=== PATIENT | male | born 1945 | race African-American/Black ===

== ENCOUNTER 2018-01-02 05:52 | Day surgery (SDC) | payer MEDICARE ==
[~2018-01-02] VITALS: Ht 190.5 cm; Wt 111.1 kg
[2018-01-02] VITALS (7 sets, daily range): BP systolic 144–169; BP diastolic 73–82
[~2018-01-02 05:52] MED LIST: AMLODIPINE10 MG PO; AUGMENTIN500TAB PO; AVELOX400 MG PO; CETIRIZ/PSE1 TAB PO; CIPRO500 MG OR; CLONIDINE0.2 MG OR; COREG25 MG OR; COREG25 MG PO; DOXAZOSIN1 MG PO; ENALAPRIL MALEA20 MG PO; ENALAPRIL2.5 MG PO; ENALAPRIL20 MG OR; FLOMAX0.4 M1 PO; FLOMAX0.4 MG OR; FLONASE NASAL50 MCG; FLUARIX QUADRIV1 IN1 IM; FLUARIX QUADRIV1 IN2 IM; FLUTICASONE50 MCG; GLIPIZIDE5 MG PO; HYDRALAZINE10 M1 PO; HYDRALAZINE50 MG OR; HYDRALAZINE50 MG PO; HYDROCHLOROT25 MG OR; HYDROCO/APAP1 T11 PO; KLOR-CON 1010 ME1 PO; LASIX 20 MG TAB20 MG PO; LASIX40 MG PO; LORTAB 5 OR; LORTAB 7.5-3251 TAB PO; METFORMIN500 MG; METFORMIN500 MG PO; NEURONTIN300 MG PO; OMEPRAZOLE20 MG PO; POOR HISTORIAN; PREVACID30 M1 OR; PREVACID30 M2 PO; PROBENECID500 MG PO; PROCTOSOL HC2.5 % RE; RANITIDINE150 MG PO; RAPAFLO4 MG PO; SIMVASTATIN80 MG PO; TIZANIDINE HCL4 M1 PO; ULTRAM50 M1 PO; VIAGRA100 MG PO; ZITHROMAX500 MG PO
[2018-01-02] MEDS ORDERED: BACTRIM DS1 TAB PO ×2 (09:07→10:46)
[2018-01-02] MEDS ORDERED: NORCO1 TA2 PO ×2 (09:07→10:46)
[2018-01-02] MEDS ORDERED: DOCUSATE CAL240 MG PO (10:46)
== END 2018-01-02 16:20 | disposition home health service (06) ==
LOC: ORM 05:52
PROVIDERS: ATTEND Urology
PROC: 0VUS0JZ Supplement Penis with Synthetic Substitute, Open Approach (ICD-10-PCS; principal; 2018-01-02)
DX: N52.9 Male erectile dysfunction, unspecified (principal); E11.9 Type 2 diabetes mellitus without complications; I10 Essential (primary) hypertension; E66.9 Obesity, unspecified; I25.10 Atherosclerotic heart disease of native coronary artery without angina pectoris; L30.9 Dermatitis, unspecified; K21.9 Gastro-esophageal reflux disease without esophagitis; M19.90 Unspecified osteoarthritis, unspecified site; N40.1 Benign prostatic hyperplasia with lower urinary tract symptoms; R35.1 Nocturia; R39.12 Poor urinary stream; Z87.11 Personal history of peptic ulcer disease; Z95.5 Presence of coronary angioplasty implant and graft
CPT/HCPCS: J2710; J3370

== ENCOUNTER → 2018-04-24 | Day surgery (SDC) | payer MEDICARE ==
[~2018-04-24] MED LIST changes: +BACTRIM DS1 TAB PO; +DOCUSATE CAL240 MG PO; +NORCO1 TA2 PO
[2018-04-24 11:38] VITALS: BP 151/73
== END ==
LOC: ORM 07:00
PROVIDERS: ATTEND Urology
DX: N40.0 Benign prostatic hyperplasia without lower urinary tract symptoms (principal); Z53.20 Procedure and treatment not carried out because of patient's decision for unspecified reasons

== ENCOUNTER → 2018-10-30 | Outpatient (REF) | payer MEDICARE ==
[2018-10-30 07:53] LABS: HEMATOCRIT 46.8 % (39.0-50.0); HEMOGLOBIN 14.6 g/dl (14.0-18.0); IMMATURE GRANULOCYTES 0.4 % (0.0-5.0); MEAN CELL VOLUME 87.5 fL CALC (80.0-100.0); MEAN CORPUSCULAR HGB 27.3 pG CALC (26.0-32.0); MEAN CORPUSCULAR HGB CONC 31.2 g/L CALC (32.0-36.0); NEUT# 2.85 thou/uL (1.82-7.42); RED BLOOD COUNT 5.35 mill/uL (4.70-6.10); RED CELL DISTRI WIDTH 13.6 % (11.5-15.5)
[2018-10-30 08:22] LABS: ALKALINE PHOSPHATASE 89 u/l (38-126); ANION GAP 13 (6-22 (CALC)); BILIRUBIN, TOTAL 0.5 mg/dL (0.0-1.4); BUN 17 mg/dL (8-23); BUN/CREATININE RATIO 15 (12-20 (CALC)); CALCULATED LDLCHOLESTEROL 39 mg/dL (62-129 (CALC)); CARBON DIOXIDE 27 mmol/l (22-30); CHLORIDE 106 mmol/l (95-108); CHOLESTEROL HDL RATIO 2.1 (<4.4 (CALC)); CREATININE 1.2 mg/dL (0.7-1.3); GFR 59 ML/MIN (>=60 (CALC)); GFR FOR AFR.AMER. > 60 ML/MIN (>=60 (CALC)); HDL CHOLESTEROL 45 mg/dL (>=40); SGOT/AST 31 u/l (19-48); SODIUM 142 mmol/l (137-146); TOTAL CHOLESTEROL 92 mg/dl (0-199); TOTAL PROTEIN 6.6 g/dL (6.3-8.2); TRIGLYCERIDES REFLEX TO dLDL 45 mg/dl (30-149); VLDL CHOLESTROL 9 mg/dl (0-38 (CALC))
== END | disposition home or self-care (01) ==
LOC: LAB 06:52
PROVIDERS: ATTEND Internal Medicine Geriatric Medicine
DX: I10 Essential (primary) hypertension (principal); E11.9 Type 2 diabetes mellitus without complications

== ENCOUNTER 2022-07-23 11:35 | Inpatient (IN) | payer MEDICARE ==
[2022-07-23] VITALS (28 sets, daily range): BP systolic 133–187; BP diastolic 58–161
[~2022-07-23] VITALS: Ht 190.5 cm; Wt 108.0 kg
[2022-07-23] MEDS ORDERED: ATORVASTATIN CA80 MG PO (12:13)
[2022-07-23] MEDS ORDERED: PLAVIX75 MG PO (12:14)
[2022-07-23] MEDS ORDERED: PROBENECID/COLC1 TAB PO (12:15)
[2022-07-23] MEDS ORDERED: OMEPRAZOLE20 MG PO (12:15)
[2022-07-23] MEDS ORDERED: TAMSULOSIN HCL0.4 MG PO (12:17)
[2022-07-23] MEDS ORDERED: OXYBUTYNIN CHLOR5 M2 (12:17)
[2022-07-23 12:37] LABS: HEMATOCRIT 45.6 % (39.0-50.0); HEMOGLOBIN 14.3 g/dl (14.0-18.0); IMMATURE GRANULOCYTES 0.2 % (0.0-5.0); MEAN CELL VOLUME 91.6 fL CALC (80.0-100.0); MEAN CORPUSCULAR HGB 28.7 pG CALC (26.0-32.0); MEAN CORPUSCULAR HGB CONC 31.4 g/dL CAL (32.0-36.0); NEUT# 3.76 thou/uL (1.82-7.42); RED BLOOD COUNT 4.98 mill/uL (4.70-6.10); RED CELL DISTRI WIDTH 14.2 % (11.5-15.5)
[2022-07-23 12:51] LABS: ALBUMIN 3.7 g/dL (3.2-5.0); ALKALINE PHOSPHATASE 99 u/l (38-126); BUN 13 mg/dL (8-23); BUN/CREATININE RATIO 14 (12-20 (CALC)); CARBON DIOXIDE 26 mmol/l (22-30); CHLORIDE 112 mmol/l (95-108); GFR FOR AFR.AMER. > 60 ML/MIN (>=60 (CALC)); GFR OTHER RACES > 60 ML/MIN (>=60 (CALC)); SGOT/AST 27 u/l (19-48); SODIUM 144 mmol/l (137-146); TOTAL PROTEIN 6.6 g/dL (6.3-8.2)
[2022-07-23 12:57] LABS: ANION GAP 10 (6-22 (CALC)); BILIRUBIN, TOTAL 0.6 mg/dL (0.0-1.4); POTASSIUM 3.7 mmol/l (3.5-5.1)
[2022-07-24 04:22] VITALS: BP 150/77
[2022-07-24 06:30] VITALS: BP 113/78
[2022-07-24 06:43] VITALS: BP 135/76
[2022-07-24 06:44] LABS: HEMATOCRIT 42.6 % (39.0-50.0); HEMOGLOBIN 13.9 g/dl (14.0-18.0); MEAN CELL VOLUME 89.3 fL CALC (80.0-100.0); MEAN CORPUSCULAR HGB 29.1 pG CALC (26.0-32.0); MEAN CORPUSCULAR HGB CONC 32.6 g/dL CAL (32.0-36.0); RED BLOOD COUNT 4.77 mill/uL (4.70-6.10)
[2022-07-24 06:55] LABS: ANION GAP 10 (6-22 (CALC)); BUN 12 mg/dL (8-23); BUN/CREATININE RATIO 13 (12-20 (CALC)); CHLORIDE 108 mmol/l (95-108); GFR FOR AFR.AMER. > 60 ML/MIN (>=60 (CALC)); GFR OTHER RACES > 60 ML/MIN (>=60 (CALC)); MAGNESIUM 1.7 mg/dL (1.6-2.3); POTASSIUM 3.6 mmol/l (3.5-5.1); SODIUM 146 mmol/l (137-146)
[2022-07-24 07:21] LABS: CARBON DIOXIDE 32 mmol/l (22-30)
[2022-07-24 13:25] VITALS: BP 144/67
[2022-07-24 19:18] VITALS: BP 133/68
[2022-07-24 23:54] VITALS: BP 141/75
[2022-07-25 04:19] VITALS: BP 149/77
[2022-07-25 05:37] LABS: HEMATOCRIT 42.9 % (39.0-50.0); HEMOGLOBIN 13.9 g/dl (14.0-18.0); MEAN CELL VOLUME 90.3 fL CALC (80.0-100.0); MEAN CORPUSCULAR HGB 29.3 pG CALC (26.0-32.0); MEAN CORPUSCULAR HGB CONC 32.4 g/dL CAL (32.0-36.0); RED BLOOD COUNT 4.75 mill/uL (4.70-6.10); RED CELL DISTRI WIDTH 13.8 % (11.5-15.5)
[2022-07-25 06:07] LABS: ANION GAP 7 (6-22 (CALC)); BUN 13 mg/dL (8-23); BUN/CREATININE RATIO 13 (12-20 (CALC)); CARBON DIOXIDE 32 mmol/l (22-30); CHLORIDE 107 mmol/l (95-108); GFR FOR AFR.AMER. > 60 ML/MIN (>=60 (CALC)); GFR OTHER RACES > 60 ML/MIN (>=60 (CALC)); MAGNESIUM 1.7 mg/dL (1.6-2.3); POTASSIUM 3.2 mmol/l (3.5-5.1); SODIUM 143 mmol/l (137-146)
[2022-07-25 07:39] VITALS: BP 149/79
[2022-07-25 09:00] VITALS: BP 143/75
[2022-07-25] MEDS ORDERED: AMLODIPINE BESY10 MG PO (12:45)
[2022-07-25] MEDS ORDERED: LASIX 20 MG TAB20 MG PO (12:46)
[2022-07-25] MEDS ORDERED: VIBRAMYCIN100 M2 PO (12:46)
[2022-07-25] MEDS ORDERED: K-TABS10 MEQ PO (12:47)
== END 2022-07-25 15:11 | DRG 193 ==
LOC: ED 11:35 → ED-I 15:33 → ED 18:05 → MS2 18:06
PROVIDERS: Family Medicine; ADMIT Internal Medicine; ATTEND Internal Medicine
PROC: 05HM33Z Insertion of Infusion Device into Right Internal Jugular Vein, Percutaneous Approach (ICD-10-PCS; principal; 2022-07-23)
DX: J18.9 Pneumonia, unspecified organism (principal); I50.23 Acute on chronic systolic (congestive) heart failure; J96.01 Acute respiratory failure with hypoxia; J44.0 Chronic obstructive pulmonary disease with (acute) lower respiratory infection; I11.0 Hypertensive heart disease with heart failure; E11.51 Type 2 diabetes mellitus with diabetic peripheral angiopathy without gangrene; I25.5 Ischemic cardiomyopathy; I25.10 Atherosclerotic heart disease of native coronary artery without angina pectoris; M10.9 Gout, unspecified; K21.9 Gastro-esophageal reflux disease without esophagitis; Z95.5 Presence of coronary angioplasty implant and graft; Z95.820 Peripheral vascular angioplasty status with implants and grafts; Z79.84 Long term (current) use of oral hypoglycemic drugs; Z87.891 Personal history of nicotine dependence; Z20.822 Contact with and (suspected) exposure to COVID-19
CPT/HCPCS: J1650

== ENCOUNTER 2022-10-04 09:52 | Inpatient (IN) | payer MEDICARE ==
[~2022-10-04] VITALS: Ht 190.5 cm; Wt 107.2 kg
[2022-10-04] VITALS (15 sets, daily range): BP systolic 143–224; BP diastolic 68–195
[~2022-10-04 09:52] MED LIST changes: +AMLODIPINE BESY10 MG PO; +ATORVASTATIN CA80 MG PO; +K-TABS10 MEQ PO; +OXYBUTYNIN CHLOR5 M2; +PLAVIX75 MG PO; +PROBENECID/COLC1 TAB PO; +TAMSULOSIN HCL0.4 MG PO; +VIBRAMYCIN100 M2 PO
--- NOTE | 2022-10-04 09:55 | NUR ---
PT TO ROOO VIA WC ABLE TO STAND AND TRANSFER SELF TO STRETCHER.
--- NOTE | 2022-10-04 10:30 | NUR ---
Reassessment of patient completed. No distress noted.
[2022-10-04 10:32] LABS: BASO% 0.7 % (0-3); EOS% 1.1 % (0-8); HEMATOCRIT 46.1 % (39.0-50.0); HEMOGLOBIN 14.1 g/dl (14.0-18.0); LYMPH% 23.5 % (15-41); MEAN CELL VOLUME 90.9 fL CALC (80.0-100.0); MEAN CORPUSCULAR HGB 27.8 pG CALC (26.0-32.0); MEAN CORPUSCULAR HGB CONC 30.6 g/dL CAL (32.0-36.0); MONO% 11.1 % (2-13); NEUT# 2.87 thou/uL (1.82-7.42); NEUT% 63.6 % (42-76); RED BLOOD COUNT 5.07 mill/uL (4.70-6.10)
[2022-10-04 10:40] LABS: URINE BILIRUBIN - DIPSTICK NEGATIVE (NEGATIVE); URINE BLOOD DIPSTICK NEGATIVE (NEGATIVE); URINE COLOR YELLOW; URINE GLUCOSE - DIPSTICK NEGATIVE (NEGATIVE); URINE KETONE NEGATIVE (NEGATIVE); URINE LEUK ESTERASE NEGATIVE (NEGATIVE); URINE PH 5.5 (4.5-8.0); URINE PROTEIN - DIPSTICK NEGATIVE (NEG-TRACE); URINE UROBILINOGEN - DIPSTICK 0.2 E.U./dL (0.2)
[2022-10-04 10:44] LABS: URINE NITRITE - DIPSTICK NEGATIVE (Negative)
[2022-10-04 10:55] LABS: INTERNATIONAL NORMALIZED RATIO 1.2 RATIO (0.7-1.3); PROTHROMBIN TIME 11.4 SECONDS (9.0-12.5)
[2022-10-04 11:02] LABS: ALBUMIN 3.8 g/dL (3.2-5.0); ALKALINE PHOSPHATASE 90 u/l (38-126); BILIRUBIN, TOTAL 0.7 mg/dL (0.2-1.3); BUN 11 mg/dL (8-23); BUN/CREATININE RATIO 9 (12-20 (CALC)); CARBON DIOXIDE 26 mmol/l (22-30); CHLORIDE 112 mmol/l (95-108); CREATININE 1.1 mg/dL (0.7-1.3); GFR FOR AFR.AMER. > 60 ML/MIN (>=60 (CALC)); GFR OTHER RACES > 60 ML/MIN (>=60 (CALC)); SGOT/AST 33 u/l (19-48); SODIUM 142 mmol/l (137-146); TOTAL PROTEIN 6.2 g/dL (6.3-8.2)
[2022-10-04 11:18] LABS: ANION GAP 8 (6-22 (CALC)); POTASSIUM 4.2 mmol/l (3.5-5.1)
--- NOTE | 2022-10-04 11:30 | NUR ---
Reassessment of patient completed. No distress noted.
--- NOTE | 2022-10-04 12:29 | NUR ---
Reassessment of patient completed. No distress noted.
--- NOTE | 2022-10-04 13:01 | NUR ---
Reassessment of patient completed. No distress noted.
--- NOTE | 2022-10-04 13:45 | NUR ---
SIX MINUTE WALK TEST ADMINISTERED. O2 SATURATION ON RA SITTIN% 02 SATURATION ON RA STANDING 80%. PT ASSISTED BACK TO BED, SUPPLMENTAL O2 REAPPLIED AT 4L, RN AT BEDSIDE FOR SATURATION TO RETURN WDL. PT TOLERATED WELL THROUGHOUT WITH NO COMPLAINTS OF ACUTE DISTRESS NOTED OR OBSERVED. MD NOTIFIED OF RESULTS.
--- NOTE | 2022-10-04 14:45 | NUR ---
Reassessment of patient completed. No distress noted.
--- NOTE | 2022-10-04 15:07 | NUR ---
375 OUTPUT BY URINAL; YELLOW CLEAR URINE NOTED
--- NOTE | 2022-10-04 16:32 | NUR ---
Reassessment of patient completed. No distress noted.
--- NOTE | 2022-10-04 17:26 | NUR ---
URINALS X2 EMPTIED. 890 CC EMPTIED OF CLEAR YELLOW URINE.
[2022-10-04] MEDS ORDERED: SLOW-MAG PO (17:51)
[2022-10-04] MEDS ORDERED: GABAPENTIN100 MG PO (17:51)
[2022-10-04] MEDS ORDERED: PROBENECID/COLC1 TAB PO (17:53)
[2022-10-04] MEDS ORDERED: LASIX 20 MG TAB20 MG PO (17:54)
--- NOTE | 2022-10-04 18:06 | NUR ---
PT ARRIVED TO ROOM 261 VIA WHEELCHAIR. PT A&OX4. NO APPARENT DISTRESS NOTED. 02 @ 4L/M VIA NC, SAT 94%. MANAGER FITNESS IN PLACE. PT ORIENTED TO ROOM AND CALL LIGHT SYSTEM. WILL CONTINUE TO MONITOR.
--- NOTE | 2022-10-04 18:18 | NUR ---
Admission Note Report Given to: ISABELLE CISSE Transported by: X Wheelchair Stretcher Transported with: X Nurse Transporter Patent IV X O2 X Farm Loan Inspector Location: ICU X [facility]
--- NOTE | 2022-10-04 19:57 | NUR ---
RECEIVED REPORT FROM ISABELLE CROW. PT RESTING ON BED WATCHING TV; A&O X3. EVEN AND UNLABORED RESPIRATIONS; DIMINISHED LUNG SOUNDS THROUGHTOUT. O2 @4L VIA NASAL CANNULA IN PLACE. TELEMETRY IN PLACE. ACTIVE BOWEL SOUNDS X4 QUADRANTS. IV SITE HEALTHY AND PATENT. EDEMA +2 NOTED TO KADY FEET. SAFETY PRECAUTIONS IN PLACE WITH CALL LIGHT IN REACH.
--- NOTE | 2022-10-04 23:59 | NUR ---
PT RESTING ON BED WITH EYES CLOSED, SUPINE POSITION. NO DISTRESS OR PAIN NOTED. O2 @ 4L VIA NASAL CANNULA IN PLACE. NO VOICED NEEDS AT THIS TIME.SAFETY PRECAUTIONS IN PLACE WITH CALL LIGHT IN REACH.
[2022-10-05] VITALS (7 sets, daily range): BP systolic 144–160; BP diastolic 64–82
--- NOTE | 2022-10-05 03:43 | NUR ---
PT RESTING ON BED WITH EYES CLOSED, SUPINE POSITION. NO DITRESS OR PAIN NOTED. O2 @ 4L VIA NASAL CANNULA IN PLACE. NO VOICED NEEDS AT THIS TIME. SAFETY PRECAUTIONS IN PLACE WITH CALL LIGHT IN REACH.
[2022-10-05 05:32] LABS: BASO% 0.4 % (0-3); EOS% 1.5 % (0-8); HEMATOCRIT 44.8 % (39.0-50.0); HEMOGLOBIN 13.9 g/dl (14.0-18.0); LYMPH% 21.6 % (15-41); MEAN CELL VOLUME 91.1 fL CALC (80.0-100.0); MEAN CORPUSCULAR HGB 28.3 pG CALC (26.0-32.0); MONO% 14.5 % (2-13); NEUT# 2.81 thou/uL (1.82-7.42); RED BLOOD COUNT 4.92 mill/uL (4.70-6.10)
[2022-10-05 05:45] LABS: ALBUMIN 3.4 g/dL (3.2-5.0); ALKALINE PHOSPHATASE 87 u/l (38-126); ANION GAP 8 (6-22 (CALC)); BILIRUBIN, TOTAL 0.8 mg/dL (0.2-1.3); BUN 9 mg/dL (8-23); BUN/CREATININE RATIO 10 (12-20 (CALC)); CARBON DIOXIDE 27 mmol/l (22-30); CHLORIDE 111 mmol/l (95-108); GFR FOR AFR.AMER. > 60 ML/MIN (>=60 (CALC)); GFR OTHER RACES > 60 ML/MIN (>=60 (CALC)); MAGNESIUM 1.5 mg/dL (1.6-2.3); POTASSIUM 3.7 mmol/l (3.5-5.1); SGOT/AST 26 u/l (19-48); SODIUM 142 mmol/l (137-146); TOTAL PROTEIN 5.9 g/dL (6.3-8.2)
--- NOTE | 2022-10-05 10:00 | NUR ---
REPLACED MAG AND POTASSIUM. PATIENT STATED FEELING "OKAY' NO PAIN. PATIENT INFORMED TO USE CALL LIGHT FOR ASSISTANCE. WILL CONTINUE TO MONITOR.
--- NOTE | 2022-10-05 20:17 | NUR ---
RECEIVED REPORT FROM NURSE OLIVER. PATIENT RESTING IN BED, HOOKED ON O2 @ 4LPM VIA NC, SPO2 @ 85% PATEINT TALKING ON THE PHONE, RAISE O2 @ 5LPM MAINATINED SPO2 @ 90%, SALINE LOCK ON LAC PATENT AND FLUSHES WELL, HOOKED ON TELEMETRY, ACTIVE BOWEL SOUNDS LBM 10/04, USES URINAL TO VOID 400CC CLEAR YELLOW URINE, CALL LIGHT IN REACH.
--- NOTE | 2022-10-06 00:23 | NUR ---
PATIENT RESTING IN BED, WITH EYES CLOSED, REMAINS ON O2 @ 5LPM VIA NC, NOT IN DISTRESS CALL LIGHT IN REACH.
--- NOTE | 2022-10-06 03:20 | NUR ---
PATIENT RESTING IN BED,REMAINS ON O2 @ 5LPM VIA NC, BREATHING UNLABORED, CALL LIGHT IN REACH.
[2022-10-06 04:04] VITALS: BP 145/73
[2022-10-06 05:31] LABS: HEMATOCRIT 46.8 % (39.0-50.0); HEMOGLOBIN 14.6 g/dl (14.0-18.0); MEAN CORPUSCULAR HGB 28.1 pG CALC (26.0-32.0); MEAN CORPUSCULAR HGB CONC 31.2 g/dL CAL (32.0-36.0); RED BLOOD COUNT 5.2 mill/uL (4.70-6.10); RED CELL DISTRI WIDTH 13.7 % (11.5-15.5)
[2022-10-06 06:01] LABS: ALBUMIN 3.6 g/dL (3.2-5.0); ALKALINE PHOSPHATASE 92 u/l (38-126); ANION GAP 8 (6-22 (CALC)); BILIRUBIN, TOTAL 0.8 mg/dL (0.2-1.3); BUN 11 mg/dL (8-23); BUN/CREATININE RATIO 12 (12-20 (CALC)); CARBON DIOXIDE 28 mmol/l (22-30); CHLORIDE 107 mmol/l (95-108); CREATININE 0.9 mg/dL (0.7-1.3); GFR FOR AFR.AMER. > 60 ML/MIN (>=60 (CALC)); GFR OTHER RACES > 60 ML/MIN (>=60 (CALC)); MAGNESIUM 1.8 mg/dL (1.6-2.3); POTASSIUM 3.7 mmol/l (3.5-5.1); SGOT/AST 23 u/l (19-48); SODIUM 140 mmol/l (137-146); TOTAL PROTEIN 6.3 g/dL (6.3-8.2)
[2022-10-06 06:59] VITALS: BP 171/81
--- NOTE | 2022-10-06 07:45 | NUR ---
PT RESTING COMFORTABLY. VITAL SIGNS STABLE. PT RESTING IN BED WITH NO NEEDS AT THIS TIME.
[2022-10-06 10:58] VITALS: BP 137/70
--- NOTE | 2022-10-06 12:09 | NUR ---
PT RESTING COMFORTABLY. VITAL SIGNS STABLE. NO FURTHER NEEDS AT THIS TIME.
--- NOTE | 2022-10-06 15:44 | NUR ---
PT RESTING COMFORTABLY. VITAL SIGNS STABLE. NO NEEDS AT THIS TIME.
[2022-10-06 16:04] VITALS: BP 152/74
[2022-10-06 19:03] VITALS: BP 161/83
--- NOTE | 2022-10-06 20:20 | NUR ---
pt in bed watching tv no s/s of distress noted. breathing even and unlabored. assessment completed. call light in reach and bed in lowest position.
[2022-10-06 23:53] VITALS: BP 142/73
--- NOTE | 2022-10-07 00:10 | NUR ---
pt in bed resting with eyes close dbreating even and unlabored. no s/s of distress noted call light in reach and bed in lowest position.
--- NOTE | 2022-10-07 03:38 | NUR ---
pt in bed resting with eyes closed breathing even and unlabored. no s/s of distress noted. call light in reach and bed in lowest position.
--- NOTE | 2022-10-07 03:40 | NUR ---
pt in bed awake denies pain or discomfort no s/s of distress noted. call light in reach and bed in lowest position.
--- NOTE | 2022-10-07 04:00 | NUR ---
pt tele rhythm change. bigeminy noted per er monitoring. ekg obtain. Dr. Bo notified of results. dr order to continue monitoring.
[2022-10-07 04:31] VITALS: BP 160/81
[2022-10-07 04:51] LABS: BASO% 0.8 % (0-3); EOS% 3.2 % (0-8); HEMATOCRIT 44.9 % (39.0-50.0); HEMOGLOBIN 14.1 g/dl (14.0-18.0); LYMPH% 26.3 % (15-41); MEAN CELL VOLUME 90.3 fL CALC (80.0-100.0); MEAN CORPUSCULAR HGB 28.4 pG CALC (26.0-32.0); MEAN CORPUSCULAR HGB CONC 31.4 g/dL CAL (32.0-36.0); MONO% 13.2 % (2-13); NEUT# 2.99 thou/uL (1.82-7.42); NEUT% 56.5 % (42-76); RED BLOOD COUNT 4.97 mill/uL (4.70-6.10); RED CELL DISTRI WIDTH 13.6 % (11.5-15.5)
[2022-10-07 05:01] LABS: ANION GAP 9 (6-22 (CALC)); BUN 13 mg/dL (8-23); BUN/CREATININE RATIO 15 (12-20 (CALC)); CARBON DIOXIDE 27 mmol/l (22-30); CHLORIDE 108 mmol/l (95-108); CREATININE 0.9 mg/dL (0.7-1.3); GFR FOR AFR.AMER. > 60 ML/MIN (>=60 (CALC)); GFR OTHER RACES > 60 ML/MIN (>=60 (CALC)); POTASSIUM 3.9 mmol/l (3.5-5.1); SODIUM 140 mmol/l (137-146)
[2022-10-07 06:52] VITALS: BP 142/75
--- NOTE | 2022-10-07 10:12 | NUR ---
PATIENT RESTING REPORTS NO PAIN WILL CONTINUE TO MONITOR. CALL LIGHT WITHIN REACH.
[2022-10-07 15:23] VITALS: BP 142/75
--- NOTE | 2022-10-07 16:55 | NUR ---
PATIENT RESTING AFTER FAMILY CAME TO VISIT TO NEW CONCERNS AT THIS TIME WILL CONTINUE TO MONITOR. PATIENT SHOWERED.
[2022-10-07 19:01] VITALS: BP 154/76
--- NOTE | 2022-10-07 20:15 | NUR ---
PT IN BED WATCHING TV. ASSESMENT COMPLETED. NO S/S OF DISTRESS NOTED. BREATHING EVEN AND UNLABORED. CALL LIGHT IN REACH AND BE DIN LOWEST POSITION.
--- NOTE | 2022-10-08 00:35 | NUR ---
PT IN BED RESTING WITH EYES CLOSED BREATHING EVEN AND UNLABORED. NO S/S OF DISTRESS NOTED. CALL LIGHT IN REACH AND BED IN LOWEST POSITION.
[2022-10-08 03:56] VITALS: BP 166/47
--- NOTE | 2022-10-08 04:55 | NUR ---
PT IN BED RESTING WITH EYES CLOSED BREAHTING EVEN AND UNLABORED. NO S/S OF DISTRESS NOTED CALL LIGHT IN REACH AND BED IN LOWEST POSITION.
[2022-10-08 05:07] LABS: BASO% 0.6 % (0-3); EOS% 2.8 % (0-8); HEMATOCRIT 46.3 % (39.0-50.0); HEMOGLOBIN 14.2 g/dl (14.0-18.0); IMMATURE GRANULOCYTES 0.2 % (0.0-5.0); MEAN CELL VOLUME 90.6 fL CALC (80.0-100.0); MEAN CORPUSCULAR HGB 27.8 pG CALC (26.0-32.0); MEAN CORPUSCULAR HGB CONC 30.7 g/dL CAL (32.0-36.0); MONO% 15.5 % (2-13); NEUT# 2.58 thou/uL (1.82-7.42); NEUT% 54.9 % (42-76); RED BLOOD COUNT 5.11 mill/uL (4.70-6.10); RED CELL DISTRI WIDTH 13.6 % (11.5-15.5)
[2022-10-08 05:22] LABS: ALBUMIN 3.3 g/dL (3.2-5.0); ALKALINE PHOSPHATASE 98 u/l (38-126); ANION GAP 11 (6-22 (CALC)); BILIRUBIN, TOTAL 0.6 mg/dL (0.2-1.3); BUN 14 mg/dL (8-23); BUN/CREATININE RATIO 16 (12-20 (CALC)); CARBON DIOXIDE 28 mmol/l (22-30); CHLORIDE 107 mmol/l (95-108); CREATININE 0.9 mg/dL (0.7-1.3); GFR FOR AFR.AMER. > 60 ML/MIN (>=60 (CALC)); GFR OTHER RACES > 60 ML/MIN (>=60 (CALC)); POTASSIUM 3.8 mmol/l (3.5-5.1); SGOT/AST 23 u/l (19-48); SODIUM 142 mmol/l (137-146); TOTAL PROTEIN 5.7 g/dL (6.3-8.2)
[2022-10-08 06:41] VITALS: BP 155/78
--- NOTE | 2022-10-08 07:38 | NUR ---
Receive report from Jose SALAS.
--- NOTE | 2022-10-08 08:00 | NUR ---
PATIENT RESTING PLEASANT IN THE BED. PATIENT NO REFER ANY PAIN OR DISCONFORT. NO DISTRESS AT THIS TIME. ASSESSMENT HEAD-TO TOE COMPLETE. PATIENT IS EDUCATED ABOUD MEDICATIONS AND NURSING PLAN FOR TODAY. PT REFER UNDERSTAND. SAFETY AND FALL PRECAUTIONS IN PLACE. CALL LIGHT WITHIN IN REACH.
[2022-10-08] MEDS ORDERED: VIBRAMYCIN100 M2 PO (10:15)
[2022-10-08 10:30] VITALS: BP 139/73
--- NOTE | 2022-10-08 12:18 | NUR ---
PATIENT STABLE RESTING IN BED. SAFETY AND FALL PRECAUTIONS IN PLACE CALL LIGHT WITHIN IN REACH.
[2022-10-08 14:08] VITALS: BP 156/80
--- NOTE | 2022-10-08 16:44 | NUR ---
PATIENT STABLE AT THE TIME OF THIS NOTE. MEDICINES ARE ADMINISTERED ACCORDING TO MAR. ROUNDS EVERY HOUR FOR THE PREVENTION OF FALLS AND SATISFACTION OF THE NEEDS OF THE PATIENT.
--- NOTE | 2022-10-08 17:16 | NUR ---
PATIENT WITH DISCHARGE ORDER WAS ONLY WAITING FOR OXYGEN WHICH ARRIVED NOW. THE PATIENT IS EDUCATED ON HOW TO USE OXYGEN AT HOME. PATIENT CALLS HIS TO COME FOR HIM. THE WILL BE EDUCATED TOO.
--- NOTE | 2022-10-08 17:42 | NUR ---
Discharge instructions given. Patient verbalizes understanding of same. Discharged in stable condition via Wheelchair to Home with staff. All belongings sent with pt.
== END 2022-10-08 17:47 | DRG 193 ==
LOC: ED 09:52 → ED-I 14:40 → ED 15:11 → MS2 15:12 → ED 15:12 → MS2 15:12
PROVIDERS: Emergency Medicine; Internal Medicine; Nurse Practitioner Family; ADMIT Internal Medicine; ATTEND Internal Medicine
DX: J18.9 Pneumonia, unspecified organism (principal); I50.23 Acute on chronic systolic (congestive) heart failure; J96.21 Acute and chronic respiratory failure with hypoxia; J44.0 Chronic obstructive pulmonary disease with (acute) lower respiratory infection; I11.0 Hypertensive heart disease with heart failure; E11.9 Type 2 diabetes mellitus without complications; I25.10 Atherosclerotic heart disease of native coronary artery without angina pectoris; K21.9 Gastro-esophageal reflux disease without esophagitis; M10.9 Gout, unspecified; Z95.5 Presence of coronary angioplasty implant and graft; Z95.820 Peripheral vascular angioplasty status with implants and grafts; Z87.891 Personal history of nicotine dependence; Z79.84 Long term (current) use of oral hypoglycemic drugs; Z20.822 Contact with and (suspected) exposure to COVID-19
CPT/HCPCS: J1650; J3475

== ENCOUNTER 2022-10-16 16:23 | Observation (INO) | payer MEDICARE ==
[2022-10-16] VITALS (7 sets, daily range): BP systolic 121–171; BP diastolic 68–96
[~2022-10-16] VITALS: Ht 190.5 cm; Wt 102.4 kg
[~2022-10-16 16:23] MED LIST changes: +GABAPENTIN100 MG PO; +SLOW-MAG PO
[2022-10-16] MEDS ORDERED: PROTONIX20 M1 PO (16:43)
[2022-10-16] MEDS ORDERED: HYDRALAZINE50 MG PO (16:44)
[2022-10-16 17:15] LABS: BASO% 0.4 % (0-3); EOS% 1.1 % (0-8); HEMATOCRIT 46.3 % (39.0-50.0); HEMOGLOBIN 14.4 g/dl (14.0-18.0); LYMPH% 20.5 % (15-41); MEAN CELL VOLUME 89.6 fL CALC (80.0-100.0); MEAN CORPUSCULAR HGB 27.9 pG CALC (26.0-32.0); MEAN CORPUSCULAR HGB CONC 31.1 g/dL CAL (32.0-36.0); MONO% 12.1 % (2-13); NEUT# 3.69 thou/uL (1.82-7.42); NEUT% 65.9 % (42-76); RED BLOOD COUNT 5.17 mill/uL (4.70-6.10)
[2022-10-16 17:42] LABS: ALKALINE PHOSPHATASE 115 u/l (38-126); ANION GAP 12 (6-22 (CALC)); BILIRUBIN, TOTAL 0.6 mg/dL (0.2-1.3); BUN 19 mg/dL (8-23); BUN/CREATININE RATIO 19 (12-20 (CALC)); CARBON DIOXIDE 23 mmol/l (22-30); CHLORIDE 105 mmol/l (95-108); GFR FOR AFR.AMER. > 60 ML/MIN (>=60 (CALC)); GFR OTHER RACES > 60 ML/MIN (>=60 (CALC)); SGOT/AST 23 u/l (19-48); SODIUM 136 mmol/l (137-146); TOTAL PROTEIN 6.8 g/dL (6.3-8.2)
[2022-10-16 17:44] LABS: ALBUMIN 4.1 g/dL (3.2-5.0)
[2022-10-17] VITALS (7 sets, daily range): BP systolic 141–155; BP diastolic 55–77
[2022-10-18] VITALS (9 sets, daily range): BP systolic 138–172; BP diastolic 60–85
[2022-10-18 05:45] LABS: BASO% 0.8 % (0-3); EOS% 3.2 % (0-8); HEMATOCRIT 47.6 % (39.0-50.0); HEMOGLOBIN 14.8 g/dl (14.0-18.0); LYMPH% 23.3 % (15-41); MEAN CELL VOLUME 89.3 fL CALC (80.0-100.0); MEAN CORPUSCULAR HGB 27.8 pG CALC (26.0-32.0); MEAN CORPUSCULAR HGB CONC 31.1 g/dL CAL (32.0-36.0); MONO% 14.6 % (2-13); NEUT# 2.74 thou/uL (1.82-7.42); NEUT% 58.1 % (42-76); RED BLOOD COUNT 5.33 mill/uL (4.70-6.10)
[2022-10-18 06:08] LABS: ALBUMIN 3.8 g/dL (3.2-5.0); ALKALINE PHOSPHATASE 95 u/l (38-126); ANION GAP 8 (6-22 (CALC)); BILIRUBIN, TOTAL 0.6 mg/dL (0.2-1.3); BUN 15 mg/dL (8-23); BUN/CREATININE RATIO 16 (12-20 (CALC)); CHLORIDE 107 mmol/l (95-108); CREATININE 0.9 mg/dL (0.7-1.3); GFR FOR AFR.AMER. > 60 ML/MIN (>=60 (CALC)); GFR OTHER RACES > 60 ML/MIN (>=60 (CALC)); POTASSIUM 3.7 mmol/l (3.5-5.1); SGOT/AST 24 u/l (19-48); SODIUM 140 mmol/l (137-146); TOTAL PROTEIN 6.7 g/dL (6.3-8.2)
[2022-10-18 06:09] LABS: CARBON DIOXIDE 29 mmol/l (22-30)
[2022-10-18] MEDS ORDERED: COREG25 MG PO (11:01)
[2022-10-19 04:03] VITALS: BP 165/77
[2022-10-19 05:27] LABS: BASO% 0.6 % (0-3); EOS% 2.3 % (0-8); HEMOGLOBIN 15.3 g/dl (14.0-18.0); LYMPH% 28.4 % (15-41); MEAN CELL VOLUME 89.4 fL CALC (80.0-100.0); MEAN CORPUSCULAR HGB 27.9 pG CALC (26.0-32.0); MEAN CORPUSCULAR HGB CONC 31.2 g/dL CAL (32.0-36.0); MONO% 15.5 % (2-13); NEUT# 2.57 thou/uL (1.82-7.42); NEUT% 53.2 % (42-76); RED BLOOD COUNT 5.48 mill/uL (4.70-6.10); RED CELL DISTRI WIDTH 12.8 % (11.5-15.5)
[2022-10-19 06:02] LABS: ALKALINE PHOSPHATASE 107 u/l (38-126); ANION GAP 12 (6-22 (CALC)); BILIRUBIN, TOTAL 0.6 mg/dL (0.2-1.3); BUN 13 mg/dL (8-23); BUN/CREATININE RATIO 15 (12-20 (CALC)); CARBON DIOXIDE 26 mmol/l (22-30); CHLORIDE 107 mmol/l (95-108); CREATININE 0.9 mg/dL (0.7-1.3); GFR FOR AFR.AMER. > 60 ML/MIN (>=60 (CALC)); GFR OTHER RACES > 60 ML/MIN (>=60 (CALC)); SGOT/AST 27 u/l (19-48); SODIUM 142 mmol/l (137-146); TOTAL PROTEIN 6.8 g/dL (6.3-8.2)
[2022-10-19 06:13] VITALS: BP 158/85
[2022-10-19 06:58] VITALS: BP 172/88
[2022-10-19 08:56] VITALS: BP 153/95
[2022-10-19 12:07] VITALS: BP 127/67
[2022-10-19 15:58] VITALS: BP 162/76
== END 2022-10-19 17:44 ==
LOC: ED 16:23 → ED-I 18:40 → ED 18:57 → MS2 18:58
PROVIDERS: Family Medicine; Nurse Practitioner Family; ADMIT Internal Medicine; ATTEND Internal Medicine
PROC: 3E02340 Introduction of Influenza Vaccine into Muscle, Percutaneous Approach (ICD-10-PCS; principal; 2022-10-17)
PROC: 3E0234Z Introduction of Serum, Toxoid and Vaccine into Muscle, Percutaneous Approach (ICD-10-PCS; 2022-10-17)
DX: R00.1 Bradycardia, unspecified (principal); I11.0 Hypertensive heart disease with heart failure; I50.22 Chronic systolic (congestive) heart failure; J44.9 Chronic obstructive pulmonary disease, unspecified; J96.10 Chronic respiratory failure, unspecified whether with hypoxia or hypercapnia; E11.9 Type 2 diabetes mellitus without complications; I25.5 Ischemic cardiomyopathy; I25.10 Atherosclerotic heart disease of native coronary artery without angina pectoris; K21.9 Gastro-esophageal reflux disease without esophagitis; I73.9 Peripheral vascular disease, unspecified; M10.9 Gout, unspecified; Z23 Encounter for immunization; Z95.5 Presence of coronary angioplasty implant and graft; Z95.820 Peripheral vascular angioplasty status with implants and grafts; Z99.81 Dependence on supplemental oxygen; Z79.84 Long term (current) use of oral hypoglycemic drugs; Z87.891 Personal history of nicotine dependence; Z87.01 Personal history of pneumonia (recurrent)
CPT/HCPCS: G0378; J1650